=== PATIENT | female | born 1995 | race Caucasian/White ===

== ENCOUNTER 2023-01-28 21:34 | Emergency (ER) | payer BC ==
[~2023-01-28] VITALS: Ht 177.8 cm; Wt 74.8 kg
[2023-01-28 21:55] VITALS: BP 160/107
--- NOTE | 2023-01-28 22:09 | NUR ---
TO BED 1 FOLLOWING TRIAGE
--- NOTE | 2023-01-28 22:38 | NUR ---
Dr. Moeller examining patient.
[2023-01-28] MEDS ORDERED: cefTRIAXone 1,000 MG in LIDOCAINE MPF 1% 2.1 ML IM ONE (22:45)
[2023-01-28] MEDS ORDERED: BACITRACIN OINT 500 UNITS/GM PKT TP ONE (22:50)
[2023-01-28] MEDS ORDERED: cefTRIAXone 1,000 MG VIAL ONE (22:55)
[2023-01-28] MEDS ORDERED: LIDOCAINE MPF 1% 5 ML ONE ×2 (22:56→22:58)
[2023-01-28] MEDS: LIDOCAINE 1% 500 MG/ 50 ML VIAL INJ ONE ×2 (23:06→23:26)
--- NOTE | 2023-01-28 23:22 | NUR ---
Patient has a 1 cm laceration to left cheek. Dr. Moeller applied sutures using sterile technique. Edges well approximated. Site cleansed with normal saline. No bleeding noted. Pt tolerated well.
[2023-01-29] MEDS ORDERED: AMOX1TAB8 PO (00:06)
[2023-01-29] MEDS ORDERED: NAPR-54 PO (00:06)
[2023-01-29 00:12] VITALS: BP 160/107
--- NOTE | 2023-01-29 00:12 | NUR ---
D/C BY PRESCRIBED AMOX-CLV AND NAPROSYN.
== END 2023-01-29 00:12 | disposition home or self-care (01) ==
LOC: MED 21:34
DX: S01.81XA Laceration without foreign body of other part of head, initial encounter (principal); Z79.899 Other long term (current) drug therapy; W54.0XXA Bitten by dog, initial encounter; Y93.89 Activity, other specified; Y92.89 Other specified places as the place of occurrence of the external cause; Y99.8 Other external cause status
CPT/HCPCS: 12011; 96372; 99283; J0696; J2001

== ENCOUNTER 2023-02-04 11:56 | Emergency (ER) | payer BC ==
[~2023-02-04] VITALS: Ht 162.6 cm; Wt 72.6 kg
[~2023-02-04 11:56] MED LIST: AMOX1TAB8 PO; NAPR-54 PO
[2023-02-04 12:14] VITALS: BP 151/99
--- NOTE | 2023-02-04 15:41 | NUR ---
Patient discharged with v/s stable. Written and verbal after care instructions given and explained. Patient alert, oriented and verbalized understanding of instructions. Ambulatory with to home. All questions addressed prior to discharge. ID band removed. Patient advised to follow up with PMD. Rx of given. Patient educated on indication of medication including possible reaction and side effects. Opportunity to ask questions provided and answered.
== END 2023-02-04 15:40 | disposition home or self-care (01) ==
LOC: MED 11:56
DX: S01.402D Unspecified open wound of left cheek and temporomandibular area, subsequent encounter (principal); R03.0 Elevated blood-pressure reading, without diagnosis of hypertension; Z48.02 Encounter for removal of sutures; Z79.1 Long term (current) use of non-steroidal anti-inflammatories (NSAID); Z79.2 Long term (current) use of antibiotics; Z88.2 Allergy status to sulfonamides; W54.0XXD Bitten by dog, subsequent encounter
CPT/HCPCS: 99281

== ENCOUNTER 2024-03-26 19:33 | Emergency (ER) | payer BC ==
[~2024-03-26] VITALS: Ht 177.8 cm; Wt 72.6 kg
[~2024-03-26 19:33] MED LIST changes: +NAPR-337 PO; -NAPR-54 PO
[2024-03-26 19:41] VITALS: BP 137/91; PULSE 88; RESP 20; TEMP 98; TEMP 98.4; O2SAT 99
[2024-03-26 20:00] VITALS: O2SAT 98
[2024-03-26] MEDS ORDERED: ONDA-188 PO (20:37)
== END 2024-03-26 20:45 | disposition home or self-care (01) ==
LOC: MED 19:33
DX: R11.0 Nausea (principal); R63.0 Anorexia; R42 Dizziness and giddiness; F41.9 Anxiety disorder, unspecified; F32.A Depression, unspecified; Z79.1 Long term (current) use of non-steroidal anti-inflammatories (NSAID); Z79.2 Long term (current) use of antibiotics
CPT/HCPCS: 99283